=== PATIENT | female | born 1960 | race Hispanic/Latino ===

== ENCOUNTER 2017-10-28 18:29 | Emergency (ER) | payer OTHER ==
[2017-10-28] MEDS ORDERED: ACETAMINOPHEN EXTRA STRENGTH 500 MG TABLET ONE (18:57)
[2017-10-28] MEDS ORDERED: TETANUS/DIPHTHERIA TOXOID [ADULT] 0.5 ML VIAL IM ONE (18:58)
== END 2017-10-28 19:47 | disposition home or self-care (01) ==
LOC: EDH 18:29
DX: S61.211A Laceration without foreign body of left index finger without damage to nail, initial encounter (principal); I10 Essential (primary) hypertension; J45.909 Unspecified asthma, uncomplicated; I25.10 Atherosclerotic heart disease of native coronary artery without angina pectoris; W26.0XXA Contact with knife, initial encounter; Y93.89 Activity, other specified; Y92.89 Other specified places as the place of occurrence of the external cause; Y99.8 Other external cause status
CPT/HCPCS: 90471; 90714

== ENCOUNTER → 2025-02-16 | Outpatient (CLI) | payer BC ==
--- NOTE | 2025-02-16 11:22 | HMCIMG ---
CERV SPINE 4-5 VWS REASON: RADICULOPATHY, CERVICAL REGION. COMPARISON: None TECHNIQUE: 5 images of cervical spine were obtained. FINDINGS: No evidence of fracture or dislocation is seen. There is straightening of normal lordotic cervical curvature which may be related to muscle spasm or positioning. Postop changes are seen of the mandible. IMPRESSION: No fracture is seen.
== END | disposition home or self-care (01) ==
LOC: RAH 09:46
PROVIDERS: ATTEND Internal Medicine
DX: M54.12 Radiculopathy, cervical region (principal)
CPT/HCPCS: 72050